=== PATIENT | male | born 1955 | race Caucasian/White ===

== ENCOUNTER 2017-12-16 05:26 | Day surgery (SDC) | payer OTHER ==
[~2017-12-16] VITALS: Ht 170.2 cm; Wt 106.6 kg
--- NOTE | ~2017-12-16 | D ---
[facility] [place] [address] [address] DISCHARGE SUMMARY Name: KENYSOHA CASSY Room #: DEP [facility]..#: [id number] Admission: 12/16/17 Attend Phys: Miguel Ángel Strong MD Discharge: 12/17/17 Date of : 57 Report #: [id number] THIS REPORT FOR: //name// CC: Miguel Ángel Marques DATE OF SERVICE: 12/17/2017 FINAL DIAGNOSES: Lumbar spinal stenosis L4-L5 level and associated disk herniation L4-L5 level. OPERATIVE PROCEDURES: Decompressive laminectomy L4 and L5 for correction of spinal stenosis and diskectomy, L4-L5 for herniated disk. SURGEON: Miguel Ángel Strong MD HISTORY OF PRESENT ILLNESS: This 62-year-old gentleman has had moderate chronic back pain and more recently developed bilateral leg pain with some associated numbness or weakness. 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 We discussed treatment options including conservative management or surgical decompression or decompression combined with 1 level fusion. He and his family have discussed these options and elected to go ahead with surgical decompression without lumbar fusion at this time. HOSPITAL COURSE: The patient was admitted and taken to the operating room on 12/16/2017. He underwent a lumbar laminectomy at L4 and L5 levels, which nicely corrected the severe spinal stenosis. The area of spondylolysis with bony hypertrophy and scarring was also debrided, which improved the foraminal stenosis on both the right and left side. An extruded disk fragment was identified above the L4-L5 disk toward the right side and that fragment was removed as well. No further decompression of the disk itself was necessary. Postoperatively, he did quite nicely. He was able to advance from IV analgesics to oral analgesics. He had a Hemovac drain, which put out about 100 mL overnight and the drain was removed this morning. The wound seems to be healing nicely. He notes his leg pain with numbness and weakness is almost completely resolved. He is quite happy with that initial finding. He does have some back discomfort, which is consistent with his back surgery. He has no other apparent problems or complaints. He is back on a regular diet and his routine previous medications. He and his family feel he is safe and ready for discharge home today with family assistance. DISCHARGE MEDICATIONS: Include Levoxyl 0.15 mg daily, Avodart 0.5 mg daily, [address] [address] [address] DISCHARGE SUMMARY Name: KENYSOHA CASSY [id number] Admission: 12/16/17 Attend Phys: Miguel Ángel Strong MD Discharge: 12/17/17 Date of : 57 Report #: [id number] Lipitor 20 mg daily, omeprazole 20 mg daily, Mobic 15 mg daily, Flonase nasal spray twice daily, Cardura 4 mg daily, hydrocodone 10 mg q.4-6 hours p.r.n. for pain, aspirin 81 mg daily. He will continue gentle activity and exercise at home with family assistance. I have instructed them in daily dressing change. I have asked them to call me or return to my office if there should be any problems or questions over the coming several days. If he is doing well, he will continue gradually advancing activity and we will plan to see him back in my office on 12/29/2017 for followup and suture removal. By: [id number] Miguel Ángel Strong MD /nt
--- NOTE | ~2017-12-16 | PATH ---
[facility] [place] [address] PATHOLOGY RPT PROCEDURE Name: KENYSOHA CASSY Room #: DEP [facility]..#: [id number] Admission: 12/16/17 Date of : 57 Discharge: 12/17/17 Report #: [id number] Path Case #: [id number] [facility] Accession Number: [id number] . 01 Material submitted: . DISC L4-L5 . 01 Clinician provided ICD-10: M51.9 . 01 Clinical history: . Unspecified thoracic and lumbosacral vertebral disorder . 02 Diagnosis: Cartilaginous tissue (disc L4-5): - Cartilaginous tissue consistent with disc material. (SHA:estiven; 12/17/2017) QMS/12/17/2017 . 02 Electronically signed: . Adan Mackenzie MD, Pathologist NPI- [id number] . 01 Gross description: . The specimen is received in formalin, labeled "Soha Cadena, L4-L5 disc per problem specimen form" and consists of 2 fibrous segments of pink-castro tissue measuring 3.1 x 0.8 x 0.5 cm and 0.6 x 0.4 x 0.2 cm. They are entirely submitted in A1. (SDY; 12/16/2017) SYU/SYU . 02 Pathologist provided ICD-10: M51.9 . 02 CPT . 455222 Specimen Comment: A courtesy copy of this report has been sent to Specimen Comment: [phone], . Specimen Comment: Report sent to / DR CARMONA Performed at: [address], [place], [place] [id number] MD Homero Quigley MD Phone: [phone] Performed at: [address] [id number] MD Ghazala Moeller MD Phone: [phone]
--- NOTE | ~2017-12-16 | O ---
[facility] [place] [address] [address] OPERATIVE REPORT Name: SOHA BUSTILLO Room #: 451-P [facility]..#: [id number] Admission: 12/16/17 Attend Phys: Miguel Ángel Strong MD Discharge: Date of : 57 Report #: [id number] THIS REPORT FOR: //name// CC: Miguel Ángel Marques DATE OF SERVICE: 12/16/2017 PREOPERATIVE DIAGNOSES: Lumbar spinal stenosis with mild spondylolisthesis at L4-L5 level, with associated extruded L4-L5 disk herniation. POSTOPERATIVE DIAGNOSES: Lumbar spinal stenosis with mild spondylolisthesis at L4-L5 level, with associated extruded L4-L5 disk herniation. PROCEDURE: Decompressive laminectomy, L4 and L5 levels and diskectomy, L4-L5, right. SURGEON: Miguel Ángel Strong M.D. INDICATIONS: This 62-year-old gentleman complains of mild low back pain, but more significant radiating leg pain bilaterally, more severe on the right side. His clinical and radiographic evaluation reveal evidence of a mild spondylolisthesis at L4-L5 level, with disk space narrowing and extruded disk herniation at L4-L5 toward the right side. His symptoms are a result of a combination of both spinal stenosis and the extruded disk fragment. We discussed preoperatively treatment options, including the option of a one-level fusion combined with decompression. He understands well, but has refused the option of fusion; instead, he prefers decompression alone. He understands he may have some problems with further instability in the future, which may require fusion at a later date. At this point, he has rather adamantly opposed any metal fixation and prefers a decompression alone. I think the spondylolisthesis is rather mild and probably reasonably stable. Therefore, I think decompression alone for relief of spinal stenosis and removal of the extruded disk fragment is probably a reasonable treatment option. DESCRIPTION OF PROCEDURE: The patient was taken to the operating room, where he was placed under general anesthesia. Prophylactic intravenous antibiotics were administered. He was turned to the prone position and the low back was meticulously prepped and draped. C-arm was used to osei the appropriate level. A skin incision was made extending from the upper aspect of L4 to the lower aspect of L5. The fascia was incised and the paraspinal muscles were retracted out laterally, exposing the spinous process and lamina. A bilateral laminectomy was performed at L4, extending up through the superior aspect of L4 to the inferior aspect of L3. The canal was moderately tight in this region. The dissection was then carried distally through the lamina of L5. Central canal opened up rather nicely in this area and I did not feel the need to go all the [address] [address] OPERATIVE REPORT Name: SOHA BUSTILLO Room #: 451-P [facility] M.R.#: [id number] Admission: 12/16/17 Attend Phys: Miguel Ángel Strong MD Discharge: Date of : 57 Report #: [id number] down to the S1 level as the central canal seemed to be reasonably well opened. There was, however, moderate foraminal narrowing as a result of the spondylolisthesis and hypertrophy of the area of spondylolysis bilaterally. These areas were debrided, creating a satisfactory foraminal decompression bilaterally. The L5 nerve root was somewhat narrowed and erythematous bilaterally, consistent with some chronic compression. Once the decompression had been completed, the nerve root seemed to be freed up nicely bilaterally. There seemed to be no further significant compression and the central canal was widely open. The extruded disk fragment at L4-L5 toward the right side was identified. This had extruded proximally along the posterior aspect of the L4 vertebra. It was excised and traced back to the superior aspect of the disk. The disk itself was only mildly prominent and there appeared to be no other openings or defect in the annulus and I did not feel further disk decompression was necessary. I felt this might further destabilize this segment and elected not to violate the disk. The canal was further inspected both far laterally and both proximally and distally to look for any other areas of disk debris or bony impingement. The decompression seemed to be adequate. The extent of the decompression was confirmed with C-arm views, noting that I was through the full upper aspect of L4 lamina and through most of the L5 lamina, but without complete penetration through the most inferior aspect. The wound was copiously irrigated. Good hemostasis was obtained. A small sheet of Gelfoam was left covering the exposed dura. This was soaked in thrombin. A single Hemovac was left deep to the fascia exiting through a separate stab incision. The fascia was then closed with multiple #1 Vicryl sutures. A second Hemovac was placed above the fascia with the tip of the Hemovac extending down below the fascia at the most distal aspect. This was also placed through a separate stab incision. The subcutaneous tissues were then closed over the drain using 0 Monocryl suture. The skin was closed with skin imelda. A sterile dressing was applied. The patient was awakened and returned to recovery room in good condition. <ELECTRONICALLY SIGNED> By: Miguel Ángel Strong MD 12/17/17 1012 [id number] Miguel Ángel Strong MD /nt
[~2017-12-16 05:26] MED LIST: AVODART0.5 MG PO; CARDURA4 MG PO; FLONASE 0.05%50 MCG NASAL; LEVOXYL150 MCG PO; LIPITOR 20 MG T20 M1 PO; MOBIC15 MG PO; NORCO 5-325 TA1 EACH PO; OMEPRAZOLE 20 M20 M1 PO
[2017-12-16 06:48] LABS: HEMATOCRIT 42.8 % (42.0-52.0); HEMOGLOBIN 15.2 gm/dL (14.0-18.0); MCHC 35.5 g/dL (28.0-37.0); RBC 4.75 mil/uL (4.50-6.00); RDW 13.6 % (10.5-14.5); WBC 3.5 thou/uL (4.0-11.0)
[2017-12-16 06:58] LABS: CREATININE 1.1 mg/dL (0.7-1.3); POTASSIUM 4.1 mmol/L (3.5-5.1)
[2017-12-16 07:04] LABS: ALBUMIN 3.8 g/dL (3.4-5.0); TOTAL BILIRUBIN 0.5 mg/dL (<0.1-1.0); TOTAL PROTEIN 6.8 g/dL (6.4-8.2)
[2017-12-16 08:09] VITALS: BP 136/76
[2017-12-16 14:50] VITALS: BP 122/68
[2017-12-16 19:08] VITALS: BP 128/77
[2017-12-16 23:48] VITALS: BP 121/68
[2017-12-17 02:17] VITALS: BP 131/75
[2017-12-17 07:20] VITALS: BP 125/64
[2017-12-17 12:01] VITALS: BP 125/64
== END 2017-12-17 14:59 | disposition home or self-care (01) ==
LOC: OR 05:26 → 4W 05:26 → TBA 05:26 → OR 07:27 → 4W 11:12 → OR 13:01 → ENTRNSPT 12-17 12:10 → EDTRNSPTSTS 12-17 12:16 → OR 12-17 14:59
PROVIDERS: Orthopaedic Surgery
DX: M48.061 Spinal stenosis, lumbar region without neurogenic claudication (principal); M43.16 Spondylolisthesis, lumbar region; M51.26 Other intervertebral disc displacement, lumbar region; G89.29 Other chronic pain; G47.30 Sleep apnea, unspecified; E78.00 Pure hypercholesterolemia, unspecified; K21.9 Gastro-esophageal reflux disease without esophagitis; E05.00 Thyrotoxicosis with diffuse goiter without thyrotoxic crisis or storm; E03.9 Hypothyroidism, unspecified; N40.0 Benign prostatic hyperplasia without lower urinary tract symptoms; M19.90 Unspecified osteoarthritis, unspecified site; K76.0 Fatty (change of) liver, not elsewhere classified; Z79.899 Other long term (current) drug therapy; Z79.82 Long term (current) use of aspirin; Z87.891 Personal history of nicotine dependence; Z98.890 Other specified postprocedural states; Z90.49 Acquired absence of other specified parts of digestive tract
CPT/HCPCS: 10047; 50010; 50101; 50402; 50704; 50850; 51412; 56525; 62110; 62900; 65131; 70005